=== PATIENT | male | born 1970 | race Caucasian/White ===

== ENCOUNTER 2022-10-06 12:16 | Outpatient (REF) | payer OTHER, SELFPAY | END 2022-10-06 12:17 | disposition home or self-care (01) | LOC: HO.SCI 12:16 | DX: Z13.89 Encounter for screening for other disorder (principal) ==

== ENCOUNTER 2022-11-11 08:52 | Outpatient (REF) | payer OTHER, SELFPAY ==
--- NOTE | ~2022-11-11 | CT_ITS ---
EXAMINATION: CT ANGIOGRAM HEAD CT ANGIOGRAM NECK CLINICAL INFORMATION: Reason for Exam POST CONCUSSION SYNDROME,GIANT CELL ARTERITIS COMPARISON: None. TECHNIQUE: Initial noncontrast bow maker gift wrapping imaging of the head and neck was performed. Noncontrast head CT was also performed. Test bolus sequences followed by intravenous administration 70 mL of Omnipaque 350. Helical imaging was performed in the axial plane from the aortic arch to the skull vertex. Delayed postcontrast imaging of the head was also performed. The data was processed at the lab animal technologist's workstation for generation of MIP sequences. Angled MIPs and volume rendered reformatted images were also generated at an offline 3D workstation. Stenoses are assessed in accordance with NASCET criteria unless otherwise indicated. DLP: 2265.92 mGy-cm This CT examination was performed using dose optimization techniques as appropriate, variously including the following: *Automated exposure control. *Adjustment of mA and/or kV according to patient size (this includes techniques or standardized protocols for targeted exams where dose is matched to indication/reason for exam; i.e. extremities or head). *Use of iterative reconstruction technique. FINDINGS: CT Head: There is no evidence of acute intracranial hemorrhage or edematous territorial infarction. There is no abnormal attenuation within the brain parenchyma. Harris-white matter differentiation is preserved. The ventricles are normal in size and configuration. No evidence for obstructive hydrocephalus. No abnormal mass effect or midline shift. No extra-axial fluid collections. No pathologic intra-axial enhancement or regional oligemia. No acute soft tissue or osseous abnormalities. Left maxillary sinus mucosal thickening. Mastoids are clear. CT Neck: The thyroid gland and remaining cervical soft tissues are within normal limits. Mild degenerative changes of the cervical spine. CT Upper Chest: The visualized lung apices and upper mediastinum are within normal limits. Neck CTA: Aortic Arch: Normal contour and caliber. Classic 3 vessel branching pattern of the aortic arch. Great Vessel Origins: No significant stenosis of the branch origins. Right Common Carotid Artery: No focal stenosis or occlusion. Cervical Right Internal Carotid Artery: Normal opacification without focal stenosis or occlusion. Left Common Carotid Artery: No focal stenosis or occlusion. Cervical Left Internal Carotid Artery: Normal opacification without focal stenosis or occlusion. Cervical Right Vertebral Artery: No focal stenosis or occlusion. Cervical Left Vertebral Artery: No focal stenosis or occlusion. Brain CTA: Intracranial Internal Carotid Arteries: No focal stenosis or occlusion. Right Anterior Cerebral Artery: Normal A1 segment. Normal opacification of the distal VARUN segments. Left Anterior Cerebral Artery: Normal A1 segment. Normal opacification of the distal VARUN segments. Anterior Communicating Artery: Normal. Right Middle Cerebral Artery: Normal M1 segment of the MCA without focal stenosis or occlusion. Normal arborization of the distal segments. Left Middle Cerebral Artery: Normal M1 segment of the MCA without focal stenosis or occlusion. Normal arborization of the distal segments. Right Vertebral Artery: Normal V4 segment. Left Vertebral Artery: Normal V4 segment. Basilar Artery: Normal without focal stenosis or occlusion. Normal appearance of the proximal superior cerebellar arteries. Right Posterior Cerebral Artery: Normal P1 segment. Normal opacification of the distal MANUAL LATHE OPERATOR segments. Left Posterior Cerebral Artery: Normal P1 segment. Normal opacification of the distal MANUAL LATHE OPERATOR segments. Normal opacification of the superior sagittal, straight, transverse, and sigmoid sinuses. CT/CT angio head neck IMPRESSION: 1. Normal noncontrast and contrast-enhanced CT of the head 2. Normal CTA of the head and neck
[2022-11-11] MEDS: iohexoL 350 MG/ML 100 ML INFUS..BTL IV (11:19)
[2022-11-11 13:23] LABS: Creatinine POC 0.8 mg/dL (0.5-1.4); GFR POC > 60
== END 2022-11-11 08:53 | disposition home or self-care (01) ==
LOC: HO.CT 08:52
PROVIDERS: Visit Provider Psychiatry & Neurology Neurology
DX: F07.81 Postconcussional syndrome (principal); M31.6 Other giant cell arteritis
CPT/HCPCS: 70496; 70498; 82565; Q9967